=== PATIENT | female | born 2005 | race Caucasian/White ===

== ENCOUNTER 2024-04-26 15:12 | Emergency (ER) | payer BC, SELFPAY ==
[2024-04-26 15:16] VITALS: BP 119/84; PULSE 93; RESP 16; TEMP 37.8; O2SAT 99; BMI 17.7
--- NOTE | 2024-04-26 15:40 | ED.GENADULT ---
HPI - General Adult General Date Seen: 04/26/24 Chief complaint: Animal Bite Stated complaint: Bat exposure Time Seen by Provider: 04/26/24 15:28 Source: patient Mode of arrival: ambulatory Limitations: no limitations History of Present Illness HPI narrative: Patient is a 18-year-old here with mom for evaluation after she woke up in the middle the night in her dorm room hearing noises, she turned her phone flashlight on identified a bat. She says that they got up and got out of the room, somehow the bat got into the hallway and as far she knows there are no further bat in the room. [facility] is looking into this. She is not aware of any bites or injuries to her skin. She has 2 roommates, they likewise were not aware of any injuries. Related Data Home Medications ?Medication ?Instructions ?Recorded ?Confirmed sertraline PO DAILY 04/26/24 Allergies Allergy/AdvReac Type Severity Reaction Status Date / Time No Known Drug Allergies Allergy Verified 04/26/24 15:15 PFSH PFSH Social History Smoking Status: Never smoker Do you use any of these nicotine containing products: None How often do you have a drink containing alcohol: never How often do you have six or more drinks on one occasion: Never AUDIT-C Alcohol total score: 0 Non-prescribed substance use: denies use Exam Narrative: Exam Narrative: Vital signs reviewed, temperature recorded at 100.1, no reported symptoms of illness. Const: Vital Signs, click to edit/add: Vital Signs - 24 hr 04/26/24 15:16 Temperature 100.1 F H Pulse Rate [Pulse Oximeter] 93 Respiratory Rate 16 Blood Pressure [Ri ght Upper Arm] 119/84 Pulse Oximetry 99 Oxygen Delivery Me thod Room Air Course Course ED Course: Will go ahead and initiate the rabies series here and have her come back for her subsequent shots. Vital Signs Vital signs: Initial Vital Signs Temperature 100.1 F H 04/26/24 15:16 Temperature Source Temporal Artery Scan 04/26/24 15:16 Pulse Rate 93 04/26/24 15:16 Respiratory Rate 16 04/26/24 15:16 Blood Pressure 119/84 04/26/24 15:16 Blood Pressure Mean 95 04/26/24 15:16 Blood Pressure Position Sitting 04/26/24 15:16 Pulse Oximetry 99 04/26/24 15:16 Oxygen Delivery Method Room Air 04/26/24 15:16 Vital Signs Temperature 100.1 F H 04/26/24 15:16 Pulse Rate 93 04/26/24 15:16 Respiratory Rate 16 04/26/24 15:16 Blood Pressure 119/84 04/26/24 15:16 Pulse Oximetry 99 04/26/24 15:16 Oxygen Delivery Method Room Air 04/26/24 15:16 Temperature 100.1 F H 04/26/24 15:16 Pulse Rate 93 04/26/24 15:16 Respiratory Rate 16 04/26/24 15:16 Blood Pressure 119/84 04/26/24 15:16 Pulse Oximetry 99 04/26/24 15:16 Oxygen Delivery Method Room Air 04/26/24 15:16 Medications Administered Medications: Discontinued Medications Generic Name Dose Route Start Last Admin Trade Name Freq PRN Reason Stop Dose Admin Rabies Immune Globulin 1,095 unit 04/26/24 15:35 04/26/24 15:59 Rabies Immune Globulin 150 Unit/Ml Inj 20 unit/kg (1095 unit) 04/26/24 15:36 1,095 unit INFILTRATI Administration ONCE ONE Rabies Vaccine 2.5 unit 04/26/24 15:35 04/26/24 16:04 Rabies Vaccine (Imovax) 2.5 Unit IM 04/26/24 15:36 2.5 unit .ONCE ONE Administration Discharge Plan Discharge Clinical Impression: Exposure to bat without known bite Patient Disposition: Home, Self-Care Condition: Stable Instructions: Rabies Vaccine (By injection), Rabies Immune Globulin (By injection) Additional Instructions: Return as instructed. Follow up return dates: 04/29 05/03 05/10 Prescriptions: No Action sertraline PO DAILY Stand Alone Forms: [facility] Info Instructions
[2024-04-26] MEDS: RABIES IMMUNE GLOBULIN 150 UNIT/ML INJ 1095 UNIT INFILTRATI (15:59)
--- NOTE | 2024-04-26 16:33 | ED.NURSE ---
Immune globulin given to pt in left arm, and left and right gluteus dequan.
== END 2024-04-26 16:33 | disposition home or self-care (01) ==
LOC: ED 15:52
PROVIDERS: Emergency Provider Emergency Medicine
DX: Z20.3 Contact with and (suspected) exposure to rabies (principal)
CPT/HCPCS: 90399; 90471; 90675; 96372; 99283; 99284